=== PATIENT | male | born 1960 | race Caucasian/White ===

== ENCOUNTER 2017-05-29 23:25 | Emergency (ER) | payer MEDICARE ==
[~2017-05-29] VITALS: Ht 190.5 cm; Wt 104.5 kg
[2017-05-29 23:28] VITALS: TEMP 97.9
[2017-05-29] MEDS ORDERED: LOTREL 10 MG-201 CAP PO (23:32)
[2017-05-29] MEDS ORDERED: ELIQUIS 5MG PO (23:33)
[2017-05-29] MEDS ORDERED: TENORMIN100 MG PO (23:33)
[2017-05-29] MEDS ORDERED: ROXICODONE 55 MG/TAB PO (23:34)
[2017-05-30 01:09] VITALS: BP 98/63; PULSE 74
== END 2017-05-30 01:20 | disposition home or self-care (01) ==
LOC: COL.ER 23:25
DX: S82.51XA Displaced fracture of medial malleolus of right tibia, initial encounter for closed fracture (principal); S82.831A Other fracture of upper and lower end of right fibula, initial encounter for closed fracture; I48.91 Unspecified atrial fibrillation; I10 Essential (primary) hypertension; F17.210 Nicotine dependence, cigarettes, uncomplicated; Z98.890 Other specified postprocedural states; W18.39XA Other fall on same level, initial encounter; X50.0XXA Overexertion from strenuous movement or load, initial encounter; Y92.009 Unspecified place in unspecified non-institutional (private) residence as the place of occurrence of the external cause

== ENCOUNTER 2017-05-31 09:45 | Emergency (ER) | payer MEDICARE ==
[~2017-05-31] VITALS: Ht 193 cm; Wt 100.0 kg
[~2017-05-31 09:45] MED LIST: ELIQUIS 5MG PO; LOTREL 10 MG-201 CAP PO; ROXICODONE 55 MG/TAB PO; TENORMIN100 MG PO
[2017-05-31 09:51] VITALS: TEMP 99
[2017-05-31 13:33] VITALS: BP 109/88; PULSE 88
== END 2017-05-31 13:40 | disposition home or self-care (01) ==
LOC: COL.ER 09:45
DX: S82.841A Displaced bimalleolar fracture of right lower leg, initial encounter for closed fracture (principal); I10 Essential (primary) hypertension; I48.91 Unspecified atrial fibrillation; F17.210 Nicotine dependence, cigarettes, uncomplicated; Z86.69 Personal history of other diseases of the nervous system and sense organs; Z79.01 Long term (current) use of anticoagulants; Z98.890 Other specified postprocedural states; X58.XXXA Exposure to other specified factors, initial encounter
CPT/HCPCS: J2704

== ENCOUNTER 2020-09-10 06:55 | Inpatient (IN) | payer MEDICARE ==
[~2020-09-10] VITALS: Ht 193 cm; Wt 104.7 kg
[2020-09-10] VITALS (392 sets, daily range): BP systolic 75–144; BP diastolic 55–79; PULSE 53–120; TEMP 97.5–98.9; O2SAT 71–100
[2020-09-10 07:20] LABS: BASO % 0.3 % (0.0-2.0); GRAN # 9.2 (1.4-6.5); GRAN % 79.6 % (42.2-75.2); HEMOGLOBIN 11.4 g/dl (13.5-18.0); LYMPH # 1.5 (1.2-3.4); LYMPH % 13.1 % (20.0-51.0); MEAN CELL VOLUME 104 fl (80.0-100.0); MEAN CORPUSCULAR HEMOGLOBIN 36 pg (27.0-31.0); MEAN CORPUSCULAR HGB CONC 34 g/dl (33.0-37.0); MEAN PLATELET VOLUME 10.2 fl (7.4-10.4); MONO # 0.8 (0.1-0.6); MONO % 6.7 % (1.7-9.3); PLATELET COUNT 278 K/mm3 (130-400); RED BLOOD COUNT 3.19 M/mm3 (4.20-5.60); REDCELL DISTRIBUTION WIDTH-CV 12.5 % (11.5-14.5)
[2020-09-10 07:21] LABS: HEMATOCRIT 33.2 % (42.0-52.0)
[2020-09-10 07:29] LABS: ALANINE AMINOTRANSFERASE 12 U/L (4-49); ALBUMIN 2.6 gm/dL (3.5-5.0); ALKALINE PHOSPHATASE 123 U/L (50-136); ANION GAP 9 mmol/L (7-16); AST,SGOT 38 U/L (15-37); BILIRUBIN,TOTAL 1.1 mg/dL (0.0-1.0); BLOOD UREA NITROGEN 30 mg/dL (9-20); CALCIUM 7.7 mg/dL (8.4-10.2); CARBON DIOXIDE 24 mmol/L (22-30); CHLORIDE 92 mmol/L (98-107); CREATININE, serum 2.51 (0.66-1.25); GLUCOSE 114 mg/dL (74-106); LIPASE 36 U/L (23-300); POTASSIUM 4.6 mmol/L (3.4-5.0); SODIUM 124 mmol/L (137-145); TOTAL PROTEIN 6.1 gm/dL (6.4-8.2)
[2020-09-10 07:41] LABS: TROPONIN-I < 0.012 ng/mL (0.000-0.035)
[2020-09-10 08:55] LABS: PROTHROMBIN TIME 22.9 SECONDS (9.7-12.8)
[2020-09-10 10:17] LABS: COLLECTION METHOD CLEAN CATCH
[2020-09-10 10:23] LABS: MUCOUS Present /lpf; PH 7 (5-8); SQUAMOUS EPITHELIAL 0-2 /hpf; URINE APPEARANCE Hazy; URINE BACTERIA Rare /hpf; URINE BILIRUBIN Negative (NEGATIVE); URINE BLOOD 2+ (NEGATIVE); URINE COLOR Yellow; URINE GLUCOSE Negative (NEGATIVE); URINE KETONE Negative (NEGATIVE); URINE LEUKOCYTE ESTERASE 3+ (NEGATIVE); URINE NITRATE Negative (NEGATIVE); URINE PROTEIN(semi-quant) Negative (NEGATIVE); URINE UROBILINOGEN >=4.0 mg/dL (NEGATIVE)
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
[2020-09-10 15:36] LABS: CALCIUM 7.6 mg/dL (8.4-10.2); CREATININE, serum 2.12 (0.66-1.25); POTASSIUM 4.5 mmol/L (3.4-5.0)
--- NOTE | 2020-09-10 15:44 | NUR ---
Paracentisis complete. Removed 4500 ML fluid off abdomen. Sent off for testing. Patient denies discomfort or SOB. GI consult at bedside to discuss care with patient.
[2020-09-10 17:09] LABS: PERITONEAL FLUID RBC 0 /mm3 (0-0)
[2020-09-10 18:47] LABS: IRON,SERUM 99 ug/dL (35-150)
[2020-09-10 18:56] LABS: TOTAL IRON BINDING CAPACITY 154 ug/dL (261-462)
--- NOTE | 2020-09-10 19:15 | NUR ---
Received report from LOUISE Lambert.
[2020-09-10 19:24] LABS: CALCIUM 7.6 mg/dL (8.4-10.2); CREATININE, serum 1.97 (0.66-1.25); POTASSIUM 4.3 mmol/L (3.4-5.0)
[2020-09-10 22:34] LABS: FRACTIONAL EXCRETION OF NA+ 5.5 %
[2020-09-10 23:14] LABS: FOLATE (FOLIC ACID) 2.5 ng/mL (7.0-31.4)
[2020-09-10 23:32] LABS: CALCIUM 7.8 mg/dL (8.4-10.2); CREATININE, serum 1.94 (0.66-1.25)
[2020-09-11] VITALS (676 sets, daily range): BP systolic 83–102; BP diastolic 52–74; PULSE 106–160; TEMP 98–98.8; O2SAT 53–100
[2020-09-11 05:34] LABS: BASO # 0.1 (0.0-0.2); BASO % 0.5 % (0.0-2.0); EOS % 0.1 % (0-4.0); GRAN # 11.5 (1.4-6.5); LYMPH # 2.3 (1.2-3.4); LYMPH % 15.5 % (20.0-51.0); MEAN CELL VOLUME 106 fl (80.0-100.0); MEAN CORPUSCULAR HGB CONC 34 g/dl (33.0-37.0); MEAN PLATELET VOLUME 9.8 fl (7.4-10.4); MONO # 1.2 (0.1-0.6); MONO % 7.7 % (1.7-9.3); PLATELET COUNT 238 K/mm3 (130-400); RED BLOOD COUNT 2.57 M/mm3 (4.20-5.60); REDCELL DISTRIBUTION WIDTH-CV 12.8 % (11.5-14.5)
[2020-09-11 05:37] LABS: HEMATOCRIT 27.3 % (42.0-52.0); HEMOGLOBIN 9.3 g/dl (13.5-18.0); MEAN CORPUSCULAR HEMOGLOBIN 36 pg (27.0-31.0)
[2020-09-11 05:41] LABS: INR 2.8 (0.8-3.0); PROTHROMBIN TIME 32.1 SECONDS (9.7-12.8)
[2020-09-11 05:47] LABS: ALBUMIN 2.4 gm/dL (3.5-5.0); CALCIUM 7.9 mg/dL (8.4-10.2); CHOLESTEROL RISK RATIO 3.5; CREATININE, serum 1.7 (0.66-1.25); POTASSIUM 3.9 mmol/L (3.4-5.0); TOTAL PROTEIN 5.5 gm/dL (6.4-8.2)
[2020-09-11 06:00] LABS: ERYTHROCYTE SEDIMENTATION RATE 25 mm/hr (0-30)
--- NOTE | 2020-09-11 07:25 | NUR ---
RECEIVED REPORT FROM LOUISE INMAN. PT LYING IN BED WATCHING TV. CALL LIGHT WITHIN REACH. NOTED HR IN AFIB BETWEEN 110-160s. NO S/S OF DISTRESS NOTED AT THIS TIME. PT ON RA. ALL OTHER VSS.
--- NOTE | 2020-09-11 09:32 | NUR ---
ATTEMPTED TO RETRIEVE RECORDS FROM DR CALDERÓN OFFICE. LEFT VOICEMAIL TO CALL BACK. DR MICHAEL AWARE.
--- NOTE | 2020-09-11 11:00 | NUR ---
DR MICHAEL AT BEDSIDE FOR ASSESSMENT. NOTIFIED PHYSICIAN OF LOOSE STOOLS THAT ARE BLACK IN COLOR, AFIB 120-170s AND SBP WITH LEVOPHED GTT. NEW ORDERS RECEIVED.
--- NOTE | 2020-09-11 11:37 | NUR ---
SPOKE TO DR MICHAEL ABOUT LACTULOSE ORDER AND PT HAS HAD TWO LOOSE LIQUID STOOLS THIS MORNING. PHYSICIAN STATES OK TO HOLD LACTULOSE TODAY AND REASSESS FOR TOMORROW.
[2020-09-11 11:50] LABS: CALCIUM 7.8 mg/dL (8.4-10.2); CREATININE, serum 1.48 (0.66-1.25); POTASSIUM 3.5 mmol/L (3.4-5.0)
--- NOTE | 2020-09-11 14:35 | NUR ---
SPOKE TO DR YOUSSEF TO SEE IF SHE WAS GOING TO COME BY TODAY. PHYSICIAN STATES YES AFTER CLINIC. PHYSICIAN INFORMED OF PT HAVING MULTIPLE LIQUID BLACK STOOLS TODAY.
--- NOTE | 2020-09-11 15:07 | NUR ---
Microarray Specialist met with patient to discuss discharge planning. Patient lives alone in [place] and sees Dr. Prieto for primary care. Patient picks up his medications from [facility] and has a walker, wheelchair, and cane at home. Patient reports he is normally independent with ADLS. Patient states his friend Huy (ph#[phone]) is his DPOA-HC but SW could not locate copy in EMR. Patient states Huy should have a copy. Patient is not and has one adult son, Flip (ph#[phone]) who would be patient's legal next of kin if DPOA-HC cannot be found. SW reviewed PT recommendation for post acute rehab and patient is agreeable to this. Patient would like a referral sent to [facility]. SW discussed options for second preference including [facility] and the three SNFs in [place]. Patient states [facility] SNF would be second preference. SW faxed referrals to [facility] and [facility]. SW also faxed [employer] to obtain prior authorization as patient has a Medicare Advantage Plan. KESHAWN contacted LOUISE Bennett-CM at [facility] and they do not have DPOA for patient. KESHAWN then contacted patient's friend, Huy who confirmed he is DPOA. Huy advised that he is a chemical blender so he is currently out of state. Huy asked SW to email his , Gina to obtain a copy. KESHAWN sent email to Gina requesting DPOA-HC document. Discharge Plan: Awaiting screens from [facility] and [facility].
--- NOTE | 2020-09-11 16:29 | NUR ---
Adrianne from [facility] advised that they are not in network with [facility].
--- NOTE | 2020-09-11 16:30 | NUR ---
DR BROWN HERE CHECKING ON PT'S HR. NOTIFIED PHYSICIAN THAT PT'S HR HAS STILL MAINTAINED ABOVE 120 EVEN AFTER 1ST DOSE OF IV DIGOXIN GIVEN. NO NEW ORDERS.
--- NOTE | 2020-09-11 16:35 | NUR ---
DR YOUSSEF AT BEDSIDE FOR EXAM AND ASSESSMENT. NO NEW ORDERS.
--- NOTE | 2020-09-11 19:00 | NUR ---
Received report from LOUISE Stanley. Patient is assisted off of the bedpan and a linen change is performed. Stool is dark and tarry with a sticky consistency. Disbrow aware. Patient continues to receive levophed drip; tolerating well. Patient's HR reportedly sporadic, ranging 100-130s most of day. Other vitals within normal limits. No further needs noted at this time.
--- NOTE | 2020-09-11 23:30 | NUR ---
Hospitalist, Rhiannon, calls this RN regarding patient's HR and rhythm. Notified of HR ranging 130s to 160s at times; rhythm continues to be afib. Rhiannon consults Dr. Lagos and Dr. Kong, and receives orders to initiate amiodarone bolus followed by the drip. At this time, Rhiannon notified of patient's recent complaints of nausea and GI upset. Received orders for PRN zofran.
[2020-09-12] VITALS (547 sets, daily range): BP systolic 93–119; BP diastolic 57–87; PULSE 104–157; TEMP 98–98.5; O2SAT 68–100
[2020-09-12 04:16] LABS: CERULOPLASMIN 25 mg/dL (20-60)
[2020-09-12 05:20] LABS: BASO # 0.1 (0.0-0.2); BASO % 0.6 % (0.0-2.0); EOS % 0.1 % (0-4.0); GRAN # 9.2 (1.4-6.5); GRAN % 76.7 % (42.2-75.2); LYMPH # 1.8 (1.2-3.4); LYMPH % 15.4 % (20.0-51.0); MEAN CELL VOLUME 103 fl (80.0-100.0); MEAN CORPUSCULAR HGB CONC 35 g/dl (33.0-37.0); MEAN PLATELET VOLUME 9.9 fl (7.4-10.4); MONO # 0.8 (0.1-0.6); MONO % 6.9 % (1.7-9.3); PLATELET COUNT 219 K/mm3 (130-400); RED BLOOD COUNT 2.42 M/mm3 (4.20-5.60); REDCELL DISTRIBUTION WIDTH-CV 12.8 % (11.5-14.5)
[2020-09-12 05:25] LABS: HEMOGLOBIN 8.7 g/dl (13.5-18.0); MEAN CORPUSCULAR HEMOGLOBIN 36 pg (27.0-31.0)
[2020-09-12 05:27] LABS: INR 1.7 (0.8-3.0); PROTHROMBIN TIME 18.7 SECONDS (9.7-12.8)
[2020-09-12 05:32] LABS: ALBUMIN 2.2 gm/dL (3.5-5.0); CALCIUM 7.3 mg/dL (8.4-10.2); CREATININE, serum 1.22 (0.66-1.25); MAGNESIUM 1.1 mg/dL (1.6-2.3); POTASSIUM 3.2 mmol/L (3.4-5.0)
--- NOTE | 2020-09-12 07:15 | NUR ---
RECEIVED REPORT FROM LOUISE INMAN. PT RESTING EASILY WATCHING TV IN BED. VSS. CALL LIGHT WITHIN REACH.
--- NOTE | 2020-09-12 08:55 | NUR ---
DR GONZALEZ AT BEDSIDE FOR ASSESSMENT.
--- NOTE | 2020-09-12 09:25 | NUR ---
DR KAMARA AT BEDSIDE FOR ASSESSMENT AND SHOWED PHYSICIAN PT'S ANKLE WOUND
--- NOTE | 2020-09-12 11:25 | NUR ---
Head Resident received an email from Gina with what appeared to be the last two pages of a legal document, but SW could not determine what the document was. The document was completed at [facility] real estate attorney in [place]. SW contacted [employer] law office and they advised they only have a business POA for patient, nothing for healthcare. KESHAWN met with patient to follow up on DPOA-HC. Patient isn't sure if he wants to complete DPOA-HC and isn't sure who he would want to designate. SW explained to patient that if he did not have DPOA for Healthcare, medical decisions would be made by his legal next of kin if he is unable to make his own medical decisions. SW advised patient his son would be his legal next of kin. Patient verbalized understanding and will continue to think about if he would like to designate anyone. KESHAWN then followed up with patient on referrals. KESHAWN advised patient that [facility] is unable to accept. KESHAWN also advised that per Joe at [facility], he would have a daily out of pocket cost ($126 semi private/$171.50 private). Patient is unsure if he can afford this. KESHAWN informed patient that [facility] in network with [facility] and patient would like a referral sent there. KESHAWN contacted Jimmy at [facility] and faxed referral. KESHAWN also consulted Belen, Financial Counselor about possible Medicaid for patient. KESHAWN will continue to follow.
--- NOTE | 2020-09-12 13:35 | NUR ---
Underwater Roboticist received a phone call from [facility] retail field representative about authorization. SW advised she was unsure of discharge date as patient is still in ICU. SW was advised that auth will need to be resubmitted (refaxed) closer to discharge date.
--- NOTE | 2020-09-12 14:32 | NUR ---
DR YOUSSEF AT BEDSIDE FOR ASSESSMENT. DISCUSS URINE CULTURE RESULTS, C. DIFFE SENT AWAITING RESULTS.
[2020-09-12 14:37] LABS: CLOSTRIDIUM DIFF A/B NEG; CLOSTRIDIUM DIFF A/B INTERP No C.diff present
--- NOTE | 2020-09-12 14:57 | NUR ---
CARE PASSED TO LOUISE KAUFMAN AT THIS TIME. REPORT GIVEN. PT AWARE OF POC.
--- NOTE | 2020-09-12 16:05 | NUR ---
ATTEMPTED TO RETREIVE MEDICAL RECORDS FROM DR GRAJEDA'S OFFICE AGAIN. LEFT MESSAGE FOR NURSE TO CALL BACK. NO RESPONSE AT THIS TIME.
--- NOTE | 2020-09-12 19:22 | NUR ---
REPORT GIVEN TO LOUISE RUBIN. CARE RELINQUISHED AT THIS TIME.
[2020-09-13] VITALS (414 sets, daily range): BP systolic 75–108; BP diastolic 52–78; PULSE 60–108; TEMP 97.2–98.7; O2SAT 71–100
[2020-09-13 05:56] LABS: BASO # 0.1 (0.0-0.2); BASO % 0.4 % (0.0-2.0); EOS % 0.1 % (0-4.0); GRAN # 10.9 (1.4-6.5); GRAN % 81.7 % (42.2-75.2); LYMPH # 1.3 (1.2-3.4); LYMPH % 9.8 % (20.0-51.0); MEAN CELL VOLUME 105 fl (80.0-100.0); MEAN CORPUSCULAR HGB CONC 33 g/dl (33.0-37.0); MEAN PLATELET VOLUME 9.6 fl (7.4-10.4); MONO % 7.5 % (1.7-9.3); PLATELET COUNT 177 K/mm3 (130-400); RED BLOOD COUNT 2.58 M/mm3 (4.20-5.60); REDCELL DISTRIBUTION WIDTH-CV 14.4 % (11.5-14.5)
[2020-09-13 06:06] LABS: INR 1.5 (0.8-3.0); PROTHROMBIN TIME 16.3 SECONDS (9.7-12.8)
[2020-09-13 06:10] LABS: ALBUMIN 2.7 gm/dL (3.5-5.0); BILIRUBIN,TOTAL 2.6 mg/dL (0.0-1.0); CALCIUM 7.6 mg/dL (8.4-10.2); CREATININE, serum 0.96 (0.66-1.25); HEMATOCRIT 27.1 % (42.0-52.0); MAGNESIUM 1.6 mg/dL (1.6-2.3); MEAN CORPUSCULAR HEMOGLOBIN 35 pg (27.0-31.0); POTASSIUM 3.7 mmol/L (3.4-5.0); TOTAL PROTEIN 5.6 gm/dL (6.4-8.2)
--- NOTE | 2020-09-13 07:00 | NUR ---
REPORT RECEIVED FROM LOUISE RUBIN
[2020-09-13 12:46] LABS: ANTISMOOTH MUSCLE ANTIBODY Negative (Negative)
--- NOTE | 2020-09-13 15:00 | NUR ---
PERSISTENT DRAINAGE NOTED FROM PARACENTESIS SITE ON LEFT ABDOMEN. DRESSING PLACED OVER SITE. IT BECOMES SATURATED FAIRLY QUICKLY. WILL CONTINUE TO DRESS IT NECESSARY. MULTIPLE LINEN CHANGES HAVE OCCURRED D/T PERITONEAL DRAINAGE.
[2020-09-13 15:43] LABS: HEPATITIS B CORE AB,TOTAL Negative (())
[2020-09-13 15:44] LABS: HEPATITIS B SURFACE ANTIBODY <2.0 (()); HEPATITIS B SURFACE ANTIGEN Negative (Negative)
--- NOTE | 2020-09-13 16:00 | NUR ---
PERSISTENT LOOSE MUCOUS-LIKE STOOLS NOTED WITH THIS PATIENT. HE HAS HAD MULTIPLE EPISODES OF INCONTINENCE AND CALLS FOR BEDPAN WELL. ATTEMPTED TO PLACE RECTAL TUBE TO PROTECT SKIN INTEGRITY, BUT RECTAL TUBE WOULD NOT STAY IN PLACE. WILL CONTINUE TO MONITOR.
--- NOTE | 2020-09-13 19:00 | NUR ---
REPORT GIVEN TO LOUISE ALANIZ
--- NOTE | 2020-09-13 19:35 | NUR ---
RECEIVED REPORT FROM LOUISE PATEL. PATIENT IN NEED OF CLEANING AMD REPOSITIONED. COMPLAINT OF ABDOMINAL UPSET. IV IN LFA AND NEO PICC IN PLACE. SEE GTT TITRATION FLOWSHEET. VSS FOR PATIENT. CALL LIGHT WITHIN REACH. COBB PATENT, FREE OF DEPENDENT LOOPS AND FLOWING TO GRAVITY.
[2020-09-13 22:40] LABS: HEPATITIS C VIRUS ANTIBODY Negative (Negative)
[2020-09-14] VITALS (572 sets, daily range): BP systolic 83–109; BP diastolic 56–90; PULSE 68–88; TEMP 95.7–97.9; O2SAT 65–100
[2020-09-14 04:30] LABS: BASO % 0.1 % (0.0-2.0); GRAN # 8.1 (1.4-6.5); GRAN % 89.7 % (42.2-75.2); LYMPH # 0.6 (1.2-3.4); LYMPH % 6.8 % (20.0-51.0); MEAN CELL VOLUME 104 fl (80.0-100.0); MEAN CORPUSCULAR HGB CONC 34 g/dl (33.0-37.0); MEAN PLATELET VOLUME 10.5 fl (7.4-10.4); MONO # 0.3 (0.1-0.6); MONO % 3.2 % (1.7-9.3); PLATELET COUNT 128 K/mm3 (130-400); RED BLOOD COUNT 2.02 M/mm3 (4.20-5.60); REDCELL DISTRIBUTION WIDTH-CV 14.3 % (11.5-14.5)
[2020-09-14 04:32] LABS: HEMATOCRIT 20.9 % (42.0-52.0); HEMOGLOBIN 7.1 g/dl (13.5-18.0); MEAN CORPUSCULAR HEMOGLOBIN 35 pg (27.0-31.0)
[2020-09-14 04:40] LABS: ALBUMIN 2.5 gm/dL (3.5-5.0); BILIRUBIN,TOTAL 1.7 mg/dL (0.0-1.0); CREATININE, serum 0.82 (0.66-1.25); MAGNESIUM 2.1 mg/dL (1.6-2.3); POTASSIUM 4.1 mmol/L (3.4-5.0); TOTAL PROTEIN 5.1 gm/dL (6.4-8.2)
[2020-09-14 04:45] LABS: INR 1.4 (0.8-3.0); PROTHROMBIN TIME 15.7 SECONDS (9.7-12.8)
[2020-09-14 04:47] LABS: PRE ALBUMIN 3.2 mg/dL (17.6-36.0)
--- NOTE | 2020-09-14 08:00 | NUR ---
Report recieved from overnight RN, all questions answered. Patient found alert and oriented in bed. Denies pain or discomfort. Heart sounds irregular, lung sounds course, bowel sounds audible. Abdomen distended, fluid leaking from previous paracentisis site. Reinforced with aquacell. IV drips infusing into right PICC line without difficulty. Anderson in place draining geovanna urine. Patient on room air, Spo2 WNL. Blood pressures remain soft at this time. All safety maintained, call amos within reach. Will continue to monitor.
[2020-09-14 11:37] LABS: HEPATITIS AB (HAV) IGG INDEX 0.55 Index (<=1.00)
--- NOTE | 2020-09-14 14:00 | NUR ---
Paracentisis complete, 2.3L removed from abdomen. Gauze bandage in place. Radiologist placed glue and aquacell to previous leaking site. Will continue to monitor.
--- NOTE | 2020-09-14 14:13 | NUR ---
Endoscopy team with Dr. Benton at bedside for EGD.
--- NOTE | 2020-09-14 14:38 | NUR ---
Report recieved from Erin GIL from Endoscopy. Patiet is alert, vital signs within baseline. No complaints of pain at this time. Will continue to monitor.
--- NOTE | 2020-09-14 16:26 | NUR ---
Vice President Education contacted patient's son, Flip to review discharge planning. Flip does not have any questions or concerns at this time.
--- NOTE | 2020-09-14 16:39 | NUR ---
Patient is tolerating blood transfusiong without difficulty. Will continue to monitor.
[2020-09-14 19:17] LABS: HEMATOCRIT 25.2 % (42.0-52.0); HEMOGLOBIN 8.4 g/dl (13.5-18.0)
--- NOTE | 2020-09-14 19:25 | NUR ---
Report given to Marisol GIL.
--- NOTE | 2020-09-14 19:45 | NUR ---
RECEIVED REPORT FROM LOUISE MADERA. PATIENT RESTING IN BED WITH EYES OPEN. SEE GTT TITRATION FLOWSHEET. VSS. COBB PATENT AND DRAINING TO GRAVITY. CALL LIGHT WITHIN REACH.
--- NOTE | 2020-09-14 21:25 | NUR ---
WHILE CLEANINNG PATIENT UP, PATIENT'S O2 SATURATION WAS DROPPING AND HAD ATTEMPTED TO PLACE OXYMASK ON 2L TO SUPPLIMENT WHEN SATS REACHED 60s, HAD TO INCREASE TO 4 AND THEN 6L AND SATURATION REMAINED IN 80s. FINISHED CLEANING PATIENT WITH HELP OF RESPIRATORY THERAPIST. PATIENT'S LUNGS HAVE BEEN COURSE CRACKLES AND SIGNIFICANT BUILD UP OF THICK SPUTUM HAS BEEN NOTED TO BE IN THE THROAT. HAD ENCOURAGED PATIENT TO WORK ON INSENTIVE SPIROMETRY DURING THE DAY. HOWEVER, PATIENT'S RESPIRATORY STATUS HAS NOT IMPROVED WITH OTHER INTERVENTIONS AND PATIENT IS UNABLE TO RECOVER QUICKLY OR ON HIS OWN. CONTACTED LOY LOPEZ. ORDERS HAVE BEEN RECEIVED. WILL PLACE PATIENT ON BIPAP TO HELP WITH VENTILATION AMONG OTHER ORDERS.
[2020-09-14 21:43] LABS: ARTERIAL BLD GAS O2 SATURATION 86.3 % (92-100); ARTERIAL BLD GAS TCO2 CT 15.6; ARTERIAL BLOOD GAS BASE EXCESS -9.6 (-2-2); ARTERIAL BLOOD GAS HCO3 14.8 meq/L (22-26); ARTERIAL BLOOD GAS PCO2 27.5 mmHg (35-45); ARTERIAL BLOOD GAS PO2 52.2 mmHg (80-100); ARTERIAL BLOOD GAS pH 7.35 (7.35-7.45)
[2020-09-15] VITALS (1083 sets, daily range): BP systolic 86–102; BP diastolic 55–72; PULSE 66–90; TEMP 96.1–97; O2SAT 78–100
[2020-09-15 05:17] LABS: MEAN CELL VOLUME 103 fl (80.0-100.0); MEAN CORPUSCULAR HGB CONC 34 g/dl (33.0-37.0); MEAN PLATELET VOLUME 10.8 fl (7.4-10.4); PLATELET COUNT 146 K/mm3 (130-400); RED BLOOD COUNT 2.48 M/mm3 (4.20-5.60); REDCELL DISTRIBUTION WIDTH-CV 15.7 % (11.5-14.5)
[2020-09-15 05:25] LABS: INR 1.3 (0.8-3.0); PROTHROMBIN TIME 14.6 SECONDS (9.7-12.8)
[2020-09-15 05:26] LABS: ALBUMIN 2.6 gm/dL (3.5-5.0); BILIRUBIN,TOTAL 1.8 mg/dL (0.0-1.0); CALCIUM 7.9 mg/dL (8.4-10.2); CREATININE, serum 1.01 (0.66-1.25); POTASSIUM 4.1 mmol/L (3.4-5.0); TOTAL PROTEIN 5.3 gm/dL (6.4-8.2)
[2020-09-15 05:27] LABS: HEMATOCRIT 25.6 % (42.0-52.0); HEMOGLOBIN 8.8 g/dl (13.5-18.0); MEAN CORPUSCULAR HEMOGLOBIN 35 pg (27.0-31.0)
[2020-09-15 05:36] LABS: LYMPHOCYTE 3 % (20.0-51.0); NEUTROPHILS 94 % (42.0-75.2)
[2020-09-15 05:37] LABS: HYPOCHROMIA 1+; OVALOCYTES 1+; PLATELET ESTIMATE NORMAL (NORMAL); POIKILOCYTOSIS 1+
[2020-09-15 11:06] LABS: ARTERIAL BLD GAS O2 SATURATION 94.3 % (92-100); ARTERIAL BLD GAS TCO2 CT 14.9; ARTERIAL BLOOD GAS HCO3 14.2 meq/L (22-26); ARTERIAL BLOOD GAS PO2 68.1 mmHg (80-100); ARTERIAL BLOOD GAS pH 7.39 (7.35-7.45)
--- NOTE | 2020-09-15 11:24 | NUR ---
Promotions Specialist faxed updates to [facility] [email or web address].
--- NOTE | 2020-09-15 20:00 | NUR ---
Assessment complete and charted. Patient has excoration to buttocks present. Abrasions to fingers present. Right ankle dressing CDI. ABD dressings CDI. Patient given bed bath and incontinence care. After cares patient had increased work of breathing with decreased oxygen saturations. 86% on 6 liters. Liter flow increased to 8 liters and patient at 90%. Patient placed on bipap at this time. Respiratory aware. Patient has ABG due this evening. Call light in reach.
[2020-09-15 20:08] LABS: MAGNESIUM 1.8 mg/dL (1.6-2.3); PHOSPHOROUS 2.7 mg/dL (2.5-4.5)
[2020-09-15 21:08] LABS: ARTERIAL BLD GAS O2 SATURATION 90.9 % (92-100); ARTERIAL BLOOD GAS BASE EXCESS -9.7 (-2-2); ARTERIAL BLOOD GAS HCO3 13.5 meq/L (22-26); ARTERIAL BLOOD GAS PCO2 22.4 mmHg (35-45); ARTERIAL BLOOD GAS PO2 58.2 mmHg (80-100); ARTERIAL BLOOD GAS pH 7.39 (7.35-7.45)
[2020-09-16] VITALS (1102 sets, daily range): BP systolic 76–123; BP diastolic 60–76; PULSE 56–92; TEMP 97.1–97.8; O2SAT 73–100
--- NOTE | 2020-09-16 00:17 | NUR ---
Assessment complete and charted at this time. Patient remains on bipap. Denies needs. Call light in reach.
[2020-09-16 06:22] LABS: BASO % 0.2 % (0.0-2.0); GRAN % 87.2 % (42.2-75.2); LYMPH # 0.7 (1.2-3.4); LYMPH % 5.4 % (20.0-51.0); MEAN CELL VOLUME 102 fl (80.0-100.0); MEAN CORPUSCULAR HGB CONC 34 g/dl (33.0-37.0); MEAN PLATELET VOLUME 11.6 fl (7.4-10.4); MONO # 0.8 (0.1-0.6); MONO % 6.5 % (1.7-9.3); PLATELET COUNT 163 K/mm3 (130-400); REDCELL DISTRIBUTION WIDTH-CV 15.4 % (11.5-14.5)
[2020-09-16 06:26] LABS: HEMATOCRIT 24.5 % (42.0-52.0); HEMOGLOBIN 8.4 g/dl (13.5-18.0); MEAN CORPUSCULAR HEMOGLOBIN 35 pg (27.0-31.0)
[2020-09-16 06:36] LABS: ALBUMIN 2.9 gm/dL (3.5-5.0); CALCIUM 8.1 mg/dL (8.4-10.2); CREATININE, serum 1.07 (0.66-1.25); MAGNESIUM 1.7 mg/dL (1.6-2.3); POTASSIUM 3.6 mmol/L (3.4-5.0); TOTAL PROTEIN 5.4 gm/dL (6.4-8.2)
--- NOTE | 2020-09-16 06:45 | NUR ---
Patient remained on bipap throughout night. Increased to 55% fiO2 this AM for saturations 87-89%. Currently at 94%. Repositioned during night. Denies needs this AM. Call light in reach.
--- NOTE | 2020-09-16 07:15 | NUR ---
Report given to LOUISE Bautista
--- NOTE | 2020-09-16 10:45 | NUR ---
Attempted to remove Bipap to wear oxymask at 6L while patient had a few sips of gatorade with his morning medications. PT initially dropped to 79% SPO2 as noted on monitor. PT slow came up to 83% Oxygen increased to 8L. PT SPO2 not rising above 87%. PT was tachypneic and showing increased work of breathing. Bipap was donned at this time. Nelly, RT now at bedside.
[2020-09-16 10:53] LABS: ARTERIAL BLD GAS O2 SATURATION 95.1 % (92-100); ARTERIAL BLD GAS TCO2 CT 17.5; ARTERIAL BLOOD GAS HCO3 16.8 meq/L (22-26); ARTERIAL BLOOD GAS PCO2 25.3 mmHg (35-45); ARTERIAL BLOOD GAS PO2 73.1 mmHg (80-100); ARTERIAL BLOOD GAS pH 7.44 (7.35-7.45)
--- NOTE | 2020-09-16 19:20 | NUR ---
Report given to LOUISE Richard. Care relinquished at this time.
[2020-09-16 19:31] LABS: COLLECTION METHOD CLEAN CATCH
[2020-09-16 19:46] LABS: MUCOUS Present /lpf; PH 5 (5-8); SQUAMOUS EPITHELIAL 0-2 /hpf; URINE APPEARANCE Cloudy; URINE BACTERIA Rare /hpf; URINE BILIRUBIN Negative (NEGATIVE); URINE BLOOD 3+ (NEGATIVE); URINE COLOR Amber; URINE GLUCOSE Negative (NEGATIVE); URINE KETONE Negative (NEGATIVE); URINE LEUKOCYTE ESTERASE 3+ (NEGATIVE); URINE NITRATE Negative (NEGATIVE); URINE PROTEIN(semi-quant) 2+ (NEGATIVE); URINE RBC >50 /hpf; URINE UROBILINOGEN Negative (NEGATIVE); URINE WBC >50 /hpf
--- NOTE | 2020-09-16 20:00 | NUR ---
Assessment complete. Pt is AXO X3, denies having any pain at this time. Pt is on BiPAP but does not have a good seal. Pt face shaved to help achieve a better seal. Pt is sitting up in the bed watching TV at this time and he denies further needs. Call light within reach.
[2020-09-17] VITALS (1152 sets, daily range): BP systolic 85–122; BP diastolic 28–83; PULSE 56–98; TEMP 96.9–97.8; O2SAT 76–100
[2020-09-17 05:18] LABS: MEAN CELL VOLUME 101 fl (80.0-100.0); MEAN CORPUSCULAR HGB CONC 34 g/dl (33.0-37.0); MEAN PLATELET VOLUME 11.2 fl (7.4-10.4); PLATELET COUNT 162 K/mm3 (130-400); RED BLOOD COUNT 2.39 M/mm3 (4.20-5.60); REDCELL DISTRIBUTION WIDTH-CV 15.1 % (11.5-14.5)
[2020-09-17 05:21] LABS: HEMATOCRIT 24.1 % (42.0-52.0); HEMOGLOBIN 8.2 g/dl (13.5-18.0); MEAN CORPUSCULAR HEMOGLOBIN 34 pg (27.0-31.0)
[2020-09-17 05:27] LABS: INR 1.5 (0.8-3.0); PROTHROMBIN TIME 16.3 SECONDS (9.7-12.8)
[2020-09-17 05:37] LABS: BILIRUBIN,TOTAL 0.9 mg/dL (0.0-1.0); CALCIUM 8.4 mg/dL (8.4-10.2); CREATININE, serum 1.22 (0.66-1.25); MAGNESIUM 1.6 mg/dL (1.6-2.3); POTASSIUM 3.5 mmol/L (3.4-5.0); TOTAL PROTEIN 5.4 gm/dL (6.4-8.2)
[2020-09-17 05:49] LABS: BAND 5 % (0-10); LYMPHOCYTE 10 % (20.0-51.0); NEUTROPHILS 79 % (42.0-75.2); PLATELET ESTIMATE NORMAL (NORMAL)
[2020-09-17 05:50] LABS: ANISOCYTOSIS 1+
--- NOTE | 2020-09-17 07:00 | NUR ---
Report received from Jose Manuel GIL.
--- NOTE | 2020-09-17 07:25 | NUR ---
Report received from Jose Manuel. Pt resting in bed at this time on Bipap. RT at bedside.
--- NOTE | 2020-09-17 07:49 | NUR ---
Bedside shift report givent to LOUISE Reardon.
--- NOTE | 2020-09-17 09:28 | NUR ---
PT INTUBATED AT 0924 BY ABSORPTION AND ADSORPTION ENGINEER, SMOOTH INTUBATION WITH 7.5 ET, 26CM @ THE TEETH. INITIAL SETTINGS INITIATED PER VERBAL ORDER BY DR. KAMARA.
[2020-09-17 10:33] LABS: ARTERIAL BLD GAS TCO2 CT 17.8; ARTERIAL BLOOD GAS BASE EXCESS -8.5 (-2-2); ARTERIAL BLOOD GAS HCO3 16.8 meq/L (22-26); ARTERIAL BLOOD GAS PCO2 33.5 mmHg (35-45); ARTERIAL BLOOD GAS pH 7.32 (7.35-7.45)
--- NOTE | 2020-09-17 12:00 | NUR ---
Within the last 2 hours family has been contacted, via voicemails and call backs to this nurse. Renetta, ex , was contacted and added to the visitors list per pts request. Spoke with SS about Flip, son, being the next of kin and person of contact in order to make medical decisions about father when he is unable to make them himself. AG called for an update, which was provided due to pts request of him being the point of contact. All 3 notified that Flip will be medical point of contact as well as the 2 visitors policy at this time. Questions encouraged. All expressed understanding.
--- NOTE | 2020-09-17 14:18 | NUR ---
Awaiting approval of PICC in patient's left arm by Tourist Cabin Keeper.
--- NOTE | 2020-09-17 14:38 | NUR ---
International Freight Forwarder collaborated with RNCaron who advised patient is about to be intubated. Patient does not have DPOA for healthcare and his legal next of kin is his son, Flip. Caron advised she thought patient told her he had a . KESHAWN and RN met with patient at bedside who is still on bipap. Caron asked patient if Renee is his and patient states "ex-". SW asked if patient was still legally and he indicated no. Caron told patient we would notify his son, Flip that he is to be intubated and patient asked if we had Flip's phone number. Caron told patient we do. KESHAWN spoke with Caron later in the morning and she advised she had contacted Flip to notify him. KESHAWN also contacted Flip and explained that as patient's legal next of kin, he would be decision maker for patient if patient is unable to make his own medical decisions. Flip verbalized understanding. KESHAWN made sure Flip's contact information was on the contact sheet on patient's chart and marked that patient was legal decision maker. KESHAWN faxed clinical updates to [facility] [employer] and [employer].
--- NOTE | 2020-09-17 15:29 | NUR ---
Primary care nurse reported NO PICC from Dr. Huston
--- NOTE | 2020-09-17 17:00 | NUR ---
Pt intubated today, does not qualify for sedation vacation.
--- NOTE | 2020-09-17 18:00 | NUR ---
Renetta at bedside with pt.
[2020-09-17 18:42] LABS: ARTERIAL BLD GAS O2 SATURATION 98.3 % (92-100); ARTERIAL BLD GAS TCO2 CT 18.2; ARTERIAL BLOOD GAS BASE EXCESS -6.4 (-2-2); ARTERIAL BLOOD GAS HCO3 17.3 meq/L (22-26); ARTERIAL BLOOD GAS PCO2 28.9 mmHg (35-45); ARTERIAL BLOOD GAS PO2 115.3 mmHg (80-100)
--- NOTE | 2020-09-17 19:00 | NUR ---
Report provided to Marisol GIL. Lines and tubes reviewed at this time.
--- NOTE | 2020-09-17 19:05 | NUR ---
RECEIVED REPORT FROM LOUISE NICOLE. PATIENT SEDATED AND INTUBATED, RESTING IN BED WITH EYES CLOSED. SEE GTT TITRATION FLOWSHEET. VSS AND CALL LIGHT WITHIN REACH. COBB CATHETER DRAINING TO GRAVITY AND FREE OF DEPENDENT LOOPS AND KINKS. ART LINE IN PLACE, ETT 25 AT THE TEETH, OG 55 AT THE TEETH PER REPORT. TUBE FEEDINGS TO BE STARTED TONIGHT. PICC LINE IN NEO IN PLACE. PATIENT APPEARS TO BE COMFORTABLE.
[2020-09-18] VITALS (927 sets, daily range): BP systolic 95–124; BP diastolic 48–71; PULSE 56–103; TEMP 97.4–98.7; O2SAT 94–99
[2020-09-18 05:27] LABS: ARTERIAL BLD GAS O2 SATURATION 96.9 % (92-100); ARTERIAL BLD GAS TCO2 CT 16.9; ARTERIAL BLOOD GAS BASE EXCESS -7.2 (-2-2); ARTERIAL BLOOD GAS HCO3 16.1 meq/L (22-26); ARTERIAL BLOOD GAS PCO2 25.9 mmHg (35-45); ARTERIAL BLOOD GAS PO2 93.5 mmHg (80-100); ARTERIAL BLOOD GAS pH 7.41 (7.35-7.45)
[2020-09-18 05:51] LABS: MEAN CELL VOLUME 105 fl (80.0-100.0); MEAN CORPUSCULAR HGB CONC 35 g/dl (33.0-37.0); MEAN PLATELET VOLUME 11.2 fl (7.4-10.4); RED BLOOD COUNT 2.64 M/mm3 (4.20-5.60); REDCELL DISTRIBUTION WIDTH-CV 15.4 % (11.5-14.5)
[2020-09-18 05:52] LABS: HEMATOCRIT 27.6 % (42.0-52.0); HEMOGLOBIN 9.6 g/dl (13.5-18.0); MEAN CORPUSCULAR HEMOGLOBIN 36 pg (27.0-31.0); PLATELET COUNT 268 K/mm3 (130-400)
[2020-09-18 06:02] LABS: CALCIUM 8.3 mg/dL (8.4-10.2); CREATININE, serum 1.16 (0.66-1.25); PHOSPHOROUS 2.5 mg/dL (2.5-4.5); POTASSIUM 3.4 mmol/L (3.4-5.0)
[2020-09-18 06:36] LABS: ANISOCYTOSIS 1+; BAND 6 % (0-10); LYMPHOCYTE 14 % (20.0-51.0); METAMYELOCYTE 3 % (0-0); MYELOCYTE 2 % (0-0); NEUTROPHILS 75 % (42.0-75.2); PLATELET ESTIMATE NORMAL (NORMAL)
--- NOTE | 2020-09-18 13:18 | NUR ---
Pt accepted at Medical - room: CA-2110
--- NOTE | 2020-09-18 16:45 | NUR ---
1645: Fentanyl and Propfol decreased per sedation vacation protocol. 1657 pt able to open eyes, follow commands and equally weak move all extremities. Sedation increased to previous rate per protocol
[2020-09-19] VITALS (847 sets, daily range): BP systolic 96–121; BP diastolic 49–67; PULSE 52–64; TEMP 96.5–98; O2SAT 73–100
[2020-09-19 05:22] LABS: ARTERIAL BLD GAS O2 SATURATION 96.8 % (92-100); ARTERIAL BLD GAS TCO2 CT 20.2; ARTERIAL BLOOD GAS BASE EXCESS -5.1 (-2-2); ARTERIAL BLOOD GAS HCO3 19.2 meq/L (22-26); ARTERIAL BLOOD GAS PCO2 33.1 mmHg (35-45); ARTERIAL BLOOD GAS pH 7.38 (7.35-7.45)
--- NOTE | 2020-09-19 05:37 | NUR ---
RN states that pt vital signs are too unstable for weaning trail.
[2020-09-19 06:02] LABS: MEAN CELL VOLUME 102 fl (80.0-100.0); MEAN CORPUSCULAR HGB CONC 34 g/dl (33.0-37.0); MEAN PLATELET VOLUME 10.4 fl (7.4-10.4); PLATELET COUNT 286 K/mm3 (130-400); RED BLOOD COUNT 2.52 M/mm3 (4.20-5.60); REDCELL DISTRIBUTION WIDTH-CV 15.5 % (11.5-14.5)
--- NOTE | 2020-09-19 06:05 | NUR ---
AT 546 PATIENT CAN OPEN EYES SPONTANEOUSLY, FOLLOWS COMMANDS SLOWLY, SEDATION RESUMES, PAIN MEDS RESUMES,
[2020-09-19 06:12] LABS: HEMATOCRIT 25.7 % (42.0-52.0); HEMOGLOBIN 8.7 g/dl (13.5-18.0); MEAN CORPUSCULAR HEMOGLOBIN 35 pg (27.0-31.0)
[2020-09-19 06:15] LABS: CALCIUM 8.4 mg/dL (8.4-10.2); CREATININE, serum 1.26 (0.66-1.25); MAGNESIUM 1.9 mg/dL (1.6-2.3); PHOSPHOROUS 1.9 mg/dL (2.5-4.5); POTASSIUM 3.1 mmol/L (3.4-5.0)
[2020-09-19 06:48] LABS: BAND 2 % (0-10); LYMPHOCYTE 14 % (20.0-51.0); METAMYELOCYTE 6 % (0-0); NEUTROPHILS 70 % (42.0-75.2); NUCLEATED RED BLOOD CELL 3 (0-6)
[2020-09-19 06:49] LABS: PLATELET ESTIMATE NORMAL (NORMAL)
--- NOTE | 2020-09-19 07:00 | NUR ---
RECEIVED REPORT FROM LOUISE AMAYA. PT RESTING EASILY ON CURRENT VENT SETTINGS: TV 480, PEEP 8, RR 24, FIO2 35%. FC PATENT AND DRAINING TO GRAVITY. OGT IN PLACE WITH TF INFUSING AT 50ML/HR. RT RADIAL ART LINE NOTED WITH GOOD WAVEFORM. HOME CARE SCHEDULER IN PLACE. VSS. SEE GTT FLOWSHEET.
--- NOTE | 2020-09-19 08:00 | NUR ---
DR KAMARA AT BEDSIDE FOR ASSESSMENT. DISCUSSED, HR, UO LAST NIGHT, BP AND OFF GTTs, NEURO STATUS. NEW ORDERS RECEIVED. PHYSICIAN REQUESTS RN TO SPEAK TO NEPHROLOGY ABOUT BUMEX AND CARDIOLOGY ABOUT DECREASING AMIO PO. WILL DISCUSS WITH PROPER PROVIDERS THEY ROUND THIS AM.
--- NOTE | 2020-09-19 08:20 | NUR ---
SPOKE TO LOUISE KAN WITH DR PUENTES ABOUT DR KAMARA'S SUGGESTION OF INCREASING BUMEX. NEW ORDERS RECEIVED.
[2020-09-19 08:28] LABS: PATHOLOGY DIFF REVIEW OK
--- NOTE | 2020-09-19 10:22 | NUR ---
SPOKE TO DR BROWN ABOUT HR AND DR KAMARA'S RECOMMENDATION, NEW ORDERS RECEIVED.
--- NOTE | 2020-09-19 12:00 | NUR ---
SPOKE TO DR SMITH ABOUT A RECTAL TUBE D/T LIQUID STOOLS AND COCCYX SORES. NEW ORDERS RECEIVED
--- NOTE | 2020-09-19 12:30 | NUR ---
DR YOUSSEF AT BEDSIDE FOR ASSESSMENT. NOTED OFF PRESSORS AND DISCUSSED RECTAL TUBE PLACEMENT AND LACTULOSE. PHYSICIAN STATES WILL SPEAK TO DR SMITH AND DECIDE TO POSSIBLY STOP LACTULOSE.
--- NOTE | 2020-09-19 18:20 | NUR ---
PAGED DR BROWN FOR TROPONIN LEVEL AND AMIODARONE GTT INSTRUCTIONS. WAITING FOR CALL BACK.
[2020-09-20] VITALS (794 sets, daily range): BP systolic 89–117; BP diastolic 45–68; PULSE 53–64; TEMP 95.6–98.6; O2SAT 68–100
[2020-09-20 04:32] LABS: MEAN CELL VOLUME 102 fl (80.0-100.0); MEAN CORPUSCULAR HGB CONC 34 g/dl (33.0-37.0); MEAN PLATELET VOLUME 10.7 fl (7.4-10.4); PLATELET COUNT 307 K/mm3 (130-400); RED BLOOD COUNT 2.69 M/mm3 (4.20-5.60); REDCELL DISTRIBUTION WIDTH-CV 15.8 % (11.5-14.5)
[2020-09-20 04:44] LABS: HEMATOCRIT 27.4 % (42.0-52.0); HEMOGLOBIN 9.4 g/dl (13.5-18.0); MEAN CORPUSCULAR HEMOGLOBIN 35 pg (27.0-31.0)
[2020-09-20 04:46] LABS: ARTERIAL BLD GAS O2 SATURATION 97.6 % (92-100); ARTERIAL BLD GAS TCO2 CT 18.7; ARTERIAL BLOOD GAS BASE EXCESS -6.3 (-2-2); ARTERIAL BLOOD GAS HCO3 17.7 meq/L (22-26); ARTERIAL BLOOD GAS PCO2 30.2 mmHg (35-45); ARTERIAL BLOOD GAS PO2 98.8 mmHg (80-100); ARTERIAL BLOOD GAS pH 7.39 (7.35-7.45)
[2020-09-20 04:51] LABS: CALCIUM 8.1 mg/dL (8.4-10.2); CREATININE, serum 1.23 (0.66-1.25); MAGNESIUM 1.7 mg/dL (1.6-2.3); PHOSPHOROUS 2.3 mg/dL (2.5-4.5); POTASSIUM 3.2 mmol/L (3.4-5.0)
[2020-09-20 04:55] LABS: PROTHROMBIN TIME 11.6 SECONDS (9.7-12.8)
--- NOTE | 2020-09-20 05:00 | NUR ---
PATIENT ABLE TO FOLLOW COMMANDS AND IS RESTING COMFORTABLY ON CURRENT LEVEL OF SEDATION.
[2020-09-20 05:27] LABS: ANISOCYTOSIS 1+; BAND 8 % (0-10); LYMPHOCYTE 8 % (20.0-51.0); METAMYELOCYTE 1 % (0-0); NEUTROPHILS 82 % (42.0-75.2); PLATELET ESTIMATE NORMAL (NORMAL)
--- NOTE | 2020-09-20 20:08 | NUR ---
Received report from LOUISE Bautista. All medications verified and all questions answered. Patient intubated and sedated but able to follow commands. VSS. Will resume care at this time.
[2020-09-21] VITALS (1066 sets, daily range): BP systolic 93–124; BP diastolic 51–79; PULSE 57–79; TEMP 97.4–97.9; O2SAT 85–100
[2020-09-21 05:32] LABS: MEAN CELL VOLUME 102 fl (80.0-100.0); MEAN CORPUSCULAR HGB CONC 34 g/dl (33.0-37.0); MEAN PLATELET VOLUME 10.5 fl (7.4-10.4); PLATELET COUNT 342 K/mm3 (130-400); RED BLOOD COUNT 2.66 M/mm3 (4.20-5.60)
[2020-09-21 05:42] LABS: ALBUMIN 2.7 gm/dL (3.5-5.0); BILIRUBIN,TOTAL 0.4 mg/dL (0.0-1.0); CALCIUM 8.1 mg/dL (8.4-10.2); CREATININE, serum 1.3 (0.66-1.25); MAGNESIUM 2.2 mg/dL (1.6-2.3); PHOSPHOROUS 3.3 mg/dL (2.5-4.5); POTASSIUM 4.3 mmol/L (3.4-5.0); TOTAL PROTEIN 5.3 gm/dL (6.4-8.2)
[2020-09-21 05:43] LABS: HEMATOCRIT 27.1 % (42.0-52.0); HEMOGLOBIN 9.1 g/dl (13.5-18.0); MEAN CORPUSCULAR HEMOGLOBIN 34 pg (27.0-31.0)
--- NOTE | 2020-09-21 05:43 | NUR ---
Beginning to ween patient off sedated to start CPAP trial at 0700 for potential extubation later this AM. Patient alert and able to follow commands and respond to yes/no questions by shaking his head. Nurse notified patient of decreasing sedation medicaiton and patient shook his head that he understood that he would be waking up more for CPAP trial. Patient tolerating decreasing sedation medication.
--- NOTE | 2020-09-21 05:53 | NUR ---
Called [facility] and spoke with Dr. Perez and notified of critical WBC value of 23.2. Nurse stated antibiotics patient was currently on. No new orders at this time.
[2020-09-21 06:03] LABS: ANISOCYTOSIS 1+; BAND 8 % (0-10); HYPOCHROMIA 1+; LYMPHOCYTE 4 % (20.0-51.0); NEUTROPHILS 84 % (42.0-75.2); OVALOCYTES 1+
[2020-09-21 06:04] LABS: PLATELET ESTIMATE NORMAL (NORMAL)
[2020-09-21 06:05] LABS: ARTERIAL BLD GAS O2 SATURATION 97.9 % (92-100); ARTERIAL BLD GAS TCO2 CT 20.7; ARTERIAL BLOOD GAS BASE EXCESS -3.1 (-2-2); ARTERIAL BLOOD GAS HCO3 19.8 meq/L (22-26); ARTERIAL BLOOD GAS PCO2 29.2 mmHg (35-45); ARTERIAL BLOOD GAS pH 7.45 (7.35-7.45)
--- NOTE | 2020-09-21 08:30 | NUR ---
PATIENT EXTUBATED BY RT DIANNA AND KENIA RN
--- NOTE | 2020-09-21 08:48 | NUR ---
PT WAS SUCCESSFULLY EXTUBATED. PLACED ON 3L OM. WILL TITRATE TOLERATED. NO DISTRESS NOTED.
--- NOTE | 2020-09-21 10:17 | NUR ---
Patient was extubated this morning. Liability Claims Representative faxed clinical updates to [facility] [employer].
--- NOTE | 2020-09-21 16:00 | NUR ---
Speech therapy here to evaluate patient
--- NOTE | 2020-09-21 19:30 | NUR ---
report given to LOUISE Saunders
--- NOTE | 2020-09-21 21:17 | NUR ---
I recieved report from LOUISE Moseley. Patient was sitting upright in his bed. He still has quite a bit of phlem that he's coughing up. He has the Yancher in his hand and is able to use it independently. He doesn't complain of pain or shortness of breath. SCD's were placed. He recieved his eventing meds with apple sauce and tolderated it well. He is on 4L NC and is comfortable. Vitals are stable and he is afebrile.
[2020-09-22] VITALS (569 sets, daily range): BP systolic 113–132; BP diastolic 59–76; PULSE 63–77; TEMP 97.4–98.9; O2SAT 86–99
[2020-09-22 05:57] LABS: BASO % 0.1 % (0.0-2.0); GRAN # 20.6 (1.4-6.5); GRAN % 85.9 % (42.2-75.2); LYMPH # 1.4 (1.2-3.4); LYMPH % 5.7 % (20.0-51.0); MEAN CELL VOLUME 105 fl (80.0-100.0); MEAN CORPUSCULAR HGB CONC 34 g/dl (33.0-37.0); MEAN PLATELET VOLUME 10.1 fl (7.4-10.4); MONO # 0.9 (0.1-0.6); MONO % 3.8 % (1.7-9.3); PLATELET COUNT 324 K/mm3 (130-400); RED BLOOD COUNT 2.65 M/mm3 (4.20-5.60); REDCELL DISTRIBUTION WIDTH-CV 16.4 % (11.5-14.5)
[2020-09-22 06:02] LABS: HEMATOCRIT 27.7 % (42.0-52.0); HEMOGLOBIN 9.3 g/dl (13.5-18.0); MEAN CORPUSCULAR HEMOGLOBIN 35 pg (27.0-31.0)
[2020-09-22 06:08] LABS: ALBUMIN 2.9 gm/dL (3.5-5.0); BILIRUBIN,TOTAL 0.7 mg/dL (0.0-1.0); CALCIUM 8.6 mg/dL (8.4-10.2); CREATININE, serum 1.3 (0.66-1.25); MAGNESIUM 1.9 mg/dL (1.6-2.3); PHOSPHOROUS 3.1 mg/dL (2.5-4.5); POTASSIUM 3.6 mmol/L (3.4-5.0); TOTAL PROTEIN 5.8 gm/dL (6.4-8.2)
--- NOTE | 2020-09-22 07:00 | NUR ---
RECEVIED REPORT FROM LOUISE RUBIN. PT SITTING UP WATCHING TV. SUCTION AND CALL LIGHT WITHIN REACH. PT ON 3L VIA NC. FC PATENT AND DRAINING TO GRAVITY. VSS.
--- NOTE | 2020-09-22 10:28 | NUR ---
DISCUSSED POC WITH DR KELLY. DISCUSSED VSS AND NO INCREASE IN ICU NEEDS OVERNIGHT. PHYSICIAN STATES AGREES IF DR KAMARA STATES OK TO TRANSFER, WILL PLACE ORDERS. DR KAMARA TO BEDSIDE AT 1029. DR KAMARA STATES OK TO TRANSFER PT AND TO COLLECT A CDIFFE SAMPLE TO RECHECK.
--- NOTE | 2020-09-22 12:54 | NUR ---
REPORT GIVEN TO LOUISE TREVINO ON MEDICAL. PT TO TRANSFER TO [facility] VIA BED. PT ON 3L VIA NC. ALL PERSONAL BELONGINGS SENT WITH PT.
--- NOTE | 2020-09-22 13:30 | NUR ---
Patient to room 319 from the ICU. Patient A&O. IV CDI, fluids infusing. Rectal tube CDI. Anderson dependent drainage, clear yellow. Denies pain and discomfort. Suction at bedside. Patient positioned for comfort. Call light within reach
[2020-09-22 13:43] LABS: CLOSTRIDIUM DIFF A/B NEG; CLOSTRIDIUM DIFF A/B INTERP No C.diff present
--- NOTE | 2020-09-22 17:53 | NUR ---
Patient repositioned for comfort. A&O. VSS 96 on room air. IV CDI. Rectal tube patent. Anderson clear yellow urine. Denies pain and discomfort. No further needs expressed from the patient. Call light within reach
--- NOTE | 2020-09-22 19:20 | NUR ---
Patient assessed at this time. Alert and oriented x 4, and able to make needs known. Complained of level 5 pain to back. Repositioned and given PRN Roxicodone as requested for pain. Double lumen PICC to RUE. Site without redness, warmth, swelling, and pain. Denies SOB and dyspnea. Currently on room air. LS CTA. Respirations even and unlabored. HRI. Telemetry in place: A-fib rate controlled. Capillary refill less than 3 seconds. Non-tenting skin turgor. BSAx4. Abdomen soft and non-tender. 1+ edema BLE. Indwelling ramsey catheter in place, draining clear yellow urine via dependent drainage. Rectal tube in place. Voices no questions, needs, or concerns at this time. Resting in bed with call light within reach. Staff assists wtih repositioning every two hours and as needed. Dressings to wounds on coccyx and right ankle are CDI.
[2020-09-23 03:25] VITALS: BP 105/57; PULSE 66; TEMP 97.8
--- NOTE | 2020-09-23 05:39 | NUR ---
Patient has been awake in bed most of this shift. Has been repositioned in bed. Denies pain and discomfort at this time. Did complain of some shortness of breath. 90% room air. Put on oxygen at 1.5 L/min via NC as requested. Voices no further questions, needs, or concerns at this time. Resting in bed with call light within reach.
[2020-09-23 07:51] VITALS: BP 108/56; PULSE 77; TEMP 98.1
[2020-09-23 11:46] VITALS: BP 120/62; PULSE 73; TEMP 98.3
--- NOTE | 2020-09-23 14:50 | NUR ---
Care provided by ÁNGELA between [id number] supervised by this instructor, agree with findings and documentation. SN will addend AM assessment to include lung sounds.
[2020-09-23 16:00] VITALS: BP 121/72; PULSE 65; TEMP 98
--- NOTE | 2020-09-23 16:42 | NUR ---
Reviewed students assessment. PICC on NEO, CDI, fluids infusing. A&O. VSS on room air, no reported SOB. Suction at the bedside. Rectal tube in place, had leaked in the beginning of shift, sterile water added to balloon. Anderson dependent drainage, clear yellow. Right ankle dressing. Call light within reach
--- NOTE | 2020-09-23 17:16 | NUR ---
Patient had an uneventful day. A&Ox3. VSS. IV CDI, fluids infusing. Denies pain and discomfort. Rectal tube patent, no reported leaking. Anderson clear yellow urine. Patient repositioned for comfort. No further needs expressed from the patient. Call light within reach
--- NOTE | 2020-09-23 18:58 | NUR ---
Received report from Amy. Patient awake in bed. Denies needs at this time.
[2020-09-23 19:15] VITALS: BP 119/62; PULSE 76; TEMP 97.5
--- NOTE | 2020-09-23 20:00 | NUR ---
Assesment done. Patient is alert and oriented. He is on room air. With ramsey catheter draining clear, yellow urine. With rectal tube draining brown liquid stools. PICC on right upper arm flushes well with blood return. Olivier at bedside. Patient has productive cough with clear secretions. With SCD on bilateral lower extremities. Wound on right ankle with dressing. Night medicines given crushed with apple sauce. Gatorade with nectar thick. Call light within reach.
[2020-09-23 23:32] VITALS: BP 105/66; PULSE 72; TEMP 97.5
--- NOTE | 2020-09-24 00:08 | NUR ---
Offered patient to repositioned him on bed, he refused. He said he's already comfortable on his position now. Will try again later.
[2020-09-24 03:35] VITALS: BP 107/60; PULSE 79; TEMP 97.5
[2020-09-24 05:51] LABS: MEAN CORPUSCULAR HGB CONC 32 g/dl (33.0-37.0); MEAN PLATELET VOLUME 10.3 fl (7.4-10.4); PLATELET COUNT 256 K/mm3 (130-400); RED BLOOD COUNT 2.58 M/mm3 (4.20-5.60); REDCELL DISTRIBUTION WIDTH-CV 17.1 % (11.5-14.5)
[2020-09-24 05:54] LABS: HEMATOCRIT 28.3 % (42.0-52.0); MEAN CELL VOLUME 110 fl (80.0-100.0); MEAN CORPUSCULAR HEMOGLOBIN 35 pg (27.0-31.0)
[2020-09-24 05:55] LABS: ALBUMIN 2.8 gm/dL (3.5-5.0); BILIRUBIN,TOTAL 0.6 mg/dL (0.0-1.0); CALCIUM 8.8 mg/dL (8.4-10.2); CREATININE, serum 1.15 (0.66-1.25); MAGNESIUM 1.9 mg/dL (1.6-2.3); POTASSIUM 3.4 mmol/L (3.4-5.0); TOTAL PROTEIN 5.7 gm/dL (6.4-8.2)
--- NOTE | 2020-09-24 06:30 | NUR ---
Changed patient's rectal tube bag this morning. He denies pain the whole shift. He was able to finish 2 apple sauce. This nurse and Lyndsey RN went to his room to reposition him but he refused. He said he just woke up and will have breakfast in a bit so he wants to be repositioned later.
[2020-09-24 06:32] LABS: ANISOCYTOSIS 1+; BAND 1 % (0-10); EOSINOPHIL 2 % (0-4); LYMPHOCYTE 12 % (20.0-51.0); NEUTROPHILS 84 % (42.0-75.2); OVALOCYTES 1+; PLATELET ESTIMATE NORMAL (NORMAL); POIKILOCYTOSIS 1+
[2020-09-24 06:33] LABS: HYPOCHROMIA 1+; POLYCHROMASIA 1+
--- NOTE | 2020-09-24 07:00 | NUR ---
Report received from LOUISE Nix. pT in bed resting, denies needs, yankeaur suction at bedside for comfort, will continue to monitor.
[2020-09-24 07:54] VITALS: BP 110/60; PULSE 76; TEMP 97.3
--- NOTE | 2020-09-24 10:11 | NUR ---
The hospitalist requested a [facility] eval. KESHAWN contacted and faxed a referral to Pradip at [facility]. Awaiting screen and approval from insurance. Pradip states that he can be up to the hospital tomorrow to speak to the patient.
--- NOTE | 2020-09-24 11:47 | NUR ---
Pt presents with two stage-2 ulcers on sacral area. Nurse found an additional ulcer. Egg crate padding placed on pt's mattress. Changed pt Right ankle dressing, wound is approximated. No drainage noted. Wound is red and edematous.
--- NOTE | 2020-09-24 11:50 | NUR ---
Assessment charted. PT has 2 large sac[address] dressings in place for 3 small open areas. Groin is excoriated and placed barrier cream. Ramsey draining yellow sediment urine to DD, pericare proivded, some leakage noted to ramsey. Rectal tube also has some leakage, cleaned and repositioned. Placed pt on egg crate mattress, heel floaters and turning q2h for comfort. Lotion applied to body when bed bath provided d/t dry skin. Pt cleared for water per Afua Ceballos, got him a glass per his request. Denies other needs, bed alarm on, will ocntinue to monitor.
[2020-09-24 13:50] VITALS: BP 102/51; PULSE 76; TEMP 97.2
--- NOTE | 2020-09-24 14:47 | NUR ---
This instructor supervised care provided by ÁNGELA between [id number], agree with documentation.
[2020-09-24 16:00] VITALS: BP 90/57; PULSE 83; TEMP 97.2
--- NOTE | 2020-09-24 19:16 | NUR ---
pts rectal tube came out this evening, per Dr. Koo okay to remove whenever pt comfortable and pt had already removed it. CLeaned pt up and noticed reddened rash over groin, abd and arms, called LOY Jurado with hospitalist group and relayed rash, she will come see soon. Pt repositioned q2h for comfort over shift today. REsting in bed now, eating supper, denies needs, report given to LOUISE Siddiqui on nightshift who will resume care.
--- NOTE | 2020-09-24 19:25 | NUR ---
Patient is awake, alert, oriented x 4, able to make all needs known, telemetry in use, rectal tube d/c by previous shift, PICC to R upper arm with dressing c/d/i, VS stable.
[2020-09-24 20:00] VITALS: BP 98/61; PULSE 56; TEMP 98
[2020-09-25] VITALS (8 sets, daily range): BP systolic 88–111; BP diastolic 43–58; PULSE 76–85; TEMP 97.8–98.5
[2020-09-25 07:04] LABS: MEAN CELL VOLUME 108 fl (80.0-100.0); MEAN CORPUSCULAR HGB CONC 32 g/dl (33.0-37.0); MEAN PLATELET VOLUME 10.7 fl (7.4-10.4); PLATELET COUNT 191 K/mm3 (130-400); RED BLOOD COUNT 2.82 M/mm3 (4.20-5.60); REDCELL DISTRIBUTION WIDTH-CV 16.7 % (11.5-14.5)
[2020-09-25 07:09] LABS: HEMATOCRIT 30.4 % (42.0-52.0); HEMOGLOBIN 9.6 g/dl (13.5-18.0); MEAN CORPUSCULAR HEMOGLOBIN 34 pg (27.0-31.0)
[2020-09-25 07:19] LABS: CALCIUM 8.4 mg/dL (8.4-10.2); CREATININE, serum 1.03 (0.66-1.25); MAGNESIUM 1.5 mg/dL (1.6-2.3); POTASSIUM 3.6 mmol/L (3.4-5.0)
--- NOTE | 2020-09-25 08:47 | NUR ---
Pradip, at [facility], reports that he has submitted for auth and will be up to the hospital today to visit the patient.
--- NOTE | 2020-09-25 10:04 | NUR ---
Pt. sitting in bed in with speech therapy eating breakfast. Pt. is tolerating advancement of diet well, S/T recommends to advance diet to a mechanical soft diet. PA informed and okay with advancement. Mechanical soft diet initiated.
--- NOTE | 2020-09-25 12:30 | NUR ---
Lisa with [employer] called. Pt's move to [facility] has been denied. Peer to Peer phone number is [phone]. Call must be made prior to 09/28 at 1100.
--- NOTE | 2020-09-25 13:41 | NUR ---
Pradip, at [facility], reports that the patient's insurance denied [facility]. The [id number] number is [phone]. SW notified the patient's PA and provided her with the [id number] number.
--- NOTE | 2020-09-25 15:57 | NUR ---
The hospitalist notified KESHAWN that he would not be doing the [id number]. KESHAWN faxed updates to [facility] and [facility]. KESHAWN also consulted IPR Director, Stephanie. KESHAWN updated the patient. He is agreeable to going to post-acute rehab.
--- NOTE | 2020-09-25 19:10 | NUR ---
Received report from Carline. Patient awake in bed. He is about to eat his dinner. Called TARIQ Campa to assist patient.
[2020-09-26] VITALS (7 sets, daily range): BP systolic 92–110; BP diastolic 45–60; PULSE 69–94; TEMP 97.3–98.6
--- NOTE | 2020-09-26 06:17 | NUR ---
PAtient had uneventful night. He refused being turned and repositioned last night. He denies pain. He was able to sleep. No other needs noted this morning.
[2020-09-26 07:10] LABS: MEAN CELL VOLUME 108 fl (80.0-100.0); MEAN CORPUSCULAR HGB CONC 32 g/dl (33.0-37.0); PLATELET COUNT 143 K/mm3 (130-400); RED BLOOD COUNT 2.79 M/mm3 (4.20-5.60); REDCELL DISTRIBUTION WIDTH-CV 16.5 % (11.5-14.5)
[2020-09-26 07:18] LABS: HEMOGLOBIN 9.5 g/dl (13.5-18.0); MEAN CORPUSCULAR HEMOGLOBIN 34 pg (27.0-31.0)
[2020-09-26 07:26] LABS: CALCIUM 7.9 mg/dL (8.4-10.2); CREATININE, serum 1.04 (0.66-1.25); MAGNESIUM 2.1 mg/dL (1.6-2.3); POTASSIUM 3.4 mmol/L (3.4-5.0)
--- NOTE | 2020-09-26 11:28 | NUR ---
Pt. in bed sitting upright. Currently expresses no needs.Consuming K replacement well. Pt. passed bowel movement, loosely formed. Nurse changed sacral dressing x2. Will continue to monitor. Call light within reach.
--- NOTE | 2020-09-26 13:52 | NUR ---
Stephanie, [facility] Director, reports that they have declined the patient. KESHAWN attempted to contact [facility] for pre-auth. KESHAWN was fifth in line. KESHAWN was able to leave phone number for them to contact back when my number was up. KESHAWN faxed the patient's information to [facility] for prior-auth. Awaiting to hear back from them. KESHAWN contacted and faxed updates to [employer] and [facility]. [facility] is requesting a copy of the patient's Medicaid application. KESHAWN to obtain the application.
--- NOTE | 2020-09-26 14:49 | NUR ---
KESHAWN contacted [facility] again to start pre-auth. KESHAWN spoke to Tati at [facility] and started pre-auth. Ref#[id number]. Tati reports that they will reach out to once they receive and process the patient's records.
--- NOTE | 2020-09-26 16:13 | NUR ---
Joe, at [facility], reports that they would require a copy of the patient's Medicaid application before they can decide if they accept or not. KESHAWN was able to obtain Medicaid application. KESHAWN faxed the application to Joe. Jimmy, at [facility], reports that they have declined the patient. KESHAWN contacted and faxed a referral to [facility], [facility], [place], [facility], [facility], [facility] [place], [facility], and [facility]. Renetta, at [facility], reports that they do not have a Medicare bed available at this time. Awaiting screens. KESHAWN attempted to contact and update the patient's son, Flip. KESHAWN left him a voicemail.
--- NOTE | 2020-09-26 19:16 | NUR ---
Pt. sitting in bed on room air. Denies pain, dizziness. Free of fever, n/v. Pt. reported he could not finish his snack. Throughout day pt. was resistant to reposition but required positive feedback to complete reposition. Pt. expresses no additional needs at this time. Call light within reach.
--- NOTE | 2020-09-26 23:20 | NUR ---
1946- ALERT AND OX3. ASSESSMENT COMPLETE. ORDERS REVIEWED. POC DISCUSSED. PT WANTED PM MEDS NOW TO INCLUDE MELTONIN TO HELP HIM SLEPP. REPOSITIONING TONIGHT OFTEN PT WILL ALLOW Q2HR. REPORT THAT PT OFTEN REFUSES TO MOVE. COBB CATH IN PLACE TO DD. SCD ON. PILLOWS FOR COMFORT. RT UPPER ARM PICC, FLUSHED GOOD BLOOD RETURN. CALL LIGHT WI REACH. NEEDS MET.
[2020-09-27 03:33] VITALS: BP 98/51; PULSE 84; TEMP 97.9
--- NOTE | 2020-09-27 07:23 | NUR ---
Patient awake and lying in bed at this time. Patient denies any pain or discomfort at this time. Denies any needs. Will continue to monitor. Call light within reach. Fall percautions in place.
[2020-09-27 07:40] VITALS: BP 94/55; PULSE 78; TEMP 97.7
--- NOTE | 2020-09-27 10:27 | NUR ---
Cait, at [facility], reports that they have declined the patient. Joe, at [facility], reports that they have declined the patient.
--- NOTE | 2020-09-27 10:39 | NUR ---
Rodriguez, at [facility], reports that she is going to call and try and get prior auth from the patient's insurance.
[2020-09-27 11:33] VITALS: BP 98/59; PULSE 87; TEMP 97.5
--- NOTE | 2020-09-27 12:52 | NUR ---
Scheduled medications given. Bed bath performed by TARIQ Henson. Dressings on sacral area changed. Patient does not C/O any pain or discomfort at this time. Patient denies any needs. Will continue to monitor. Call light within reach. Fall percautions in place.
--- NOTE | 2020-09-27 14:56 | NUR ---
Germania, at [facility] in [place], reports that they have accepted the patient, but need to get approval from insurance first. She states that they would be able to take him tomorrow. [facility]. KESHAWN received a call from [employer]. [facility] reports that the patient's [employer] has approved SNF for five days from 09/27-10/01. Auth#[id number]. KESHAWN informed Germania at [facility] of this. She states that she still needs to hear from insurance.
[2020-09-27 15:53] VITALS: BP 101/61; PULSE 76; TEMP 98
--- NOTE | 2020-09-27 16:12 | NUR ---
KESHAWN contacted the patient's son, Flip, and updated him on [facility]'s acceptance. Flip is in agreement with the patient going to [facility]. SW met with the patient and updated him. The patient appeared hesitant, but was agreeable to going to [facility]. KESHAWN contacted Germania at [facility] to follow up on whether she had heard from insurance yet. Germania reports that she has not yet, but states that she has went ahead and got transportation set up for tomorrow at 1400. She states that if she does not hear from insurance by then though, transportation will have to be arranged by our facility for later in the day or they would get transportation set up on Thursday. KESHAWN updated the patient and his PA. SW attempted to update his son, Flip, on the time. SW left him a voicemail.
[2020-09-27 19:06] VITALS: BP 91/46; PULSE 66; TEMP 97.5
--- NOTE | 2020-09-27 19:25 | NUR ---
Patient had an uneventful day. Patient still waiting on placement. Anderson catheter DC'd. Balloon intact, 8 ml of NS taken out, pericare performed. Patient does not C/O any pain or discomfort at this time. Denies any further needs. Bedside report given to LOUISE Marques. Call light felipe herrera. Fall percautions in place.
--- NOTE | 2020-09-27 23:42 | NUR ---
1955- ASSESSMENT DONE. PM MEDS GIVEN. DENIES SOA, CHEST PAIN DIZZY OR GENERAL PAIN. COMFORTABLE IN POSITONED, DOES NOT WANT TO REPOSITION. MULPITLE WOUNDS COVERED W DSG, C/D/I. AWAITING PLACEMENT. PT XWIFE AT BEDSIDE. NEEDS MET.
[2020-09-27 23:48] VITALS: BP 95/49; PULSE 74; TEMP 97.9
[2020-09-28 04:00] VITALS: BP 94/59; PULSE 76; TEMP 97.3
--- NOTE | 2020-09-28 05:47 | NUR ---
PT RESTED THROUGH THE NIGHT WO INCIDENT. DID ALLOW US TO TURN HIM TWICE OVERNIGHT. MEPILEX CHANGED ON BOTTOM. POSITIONED W PILLOWS. AM MEDS GIVEN. DENIES PAIN. LIQ LOOSE BM THIS AM ON BEDPAN.
[2020-09-28 07:17] LABS: BASO % 0.1 % (0.0-2.0); GRAN # 10.4 (1.4-6.5); GRAN % 84.2 % (42.2-75.2); LYMPH # 1.2 (1.2-3.4); LYMPH % 9.3 % (20.0-51.0); MEAN CELL VOLUME 107 fl (80.0-100.0); MEAN CORPUSCULAR HGB CONC 32 g/dl (33.0-37.0); MEAN PLATELET VOLUME 11.6 fl (7.4-10.4); MONO # 0.7 (0.1-0.6); MONO % 5.9 % (1.7-9.3); PLATELET COUNT 145 K/mm3 (130-400); RED BLOOD COUNT 2.81 M/mm3 (4.20-5.60); REDCELL DISTRIBUTION WIDTH-CV 15.7 % (11.5-14.5)
--- NOTE | 2020-09-28 07:21 | NUR ---
Patient awake and lying in bed at this time. Breakfast for patient ordered. Patient denies any pain or discomfort at this time. Denies any further needs. Will continue to monitor. Call light within reach. Fall percautions in place.
[2020-09-28 07:22] LABS: ALBUMIN 2.5 gm/dL (3.5-5.0); BILIRUBIN,TOTAL 0.9 mg/dL (0.0-1.0); CALCIUM 7.9 mg/dL (8.4-10.2); CREATININE, serum 1.16 (0.66-1.25); MAGNESIUM 1.9 mg/dL (1.6-2.3); POTASSIUM 3.4 mmol/L (3.4-5.0); TOTAL PROTEIN 5.7 gm/dL (6.4-8.2)
[2020-09-28 07:24] LABS: HEMATOCRIT 30.1 % (42.0-52.0); HEMOGLOBIN 9.6 g/dl (13.5-18.0); MEAN CORPUSCULAR HEMOGLOBIN 34 pg (27.0-31.0)
[2020-09-28 08:05] VITALS: BP 108/58; PULSE 73; TEMP 98.2
[2020-09-28] MEDS ORDERED: IPRATROPIUM BROM3 M1 IH (10:52)
[2020-09-28] MEDS ORDERED: NICODERM C21 MG/PATC TD (10:52)
[2020-09-28] MEDS ORDERED: PERFOROMIS20 MCG/2 M IH (10:52)
[2020-09-28] MEDS ORDERED: DIGITEK0.25 MG PO (10:53)
[2020-09-28] MEDS ORDERED: ALDACTONE50 MG PO (10:53)
[2020-09-28] MEDS ORDERED: MAG-OX 400400 MG/TAB PO (10:54)
[2020-09-28] MEDS ORDERED: PULMICORT0.5 MG/2 M IH (10:54)
[2020-09-28] MEDS ORDERED: LASIX 20MG TABL20 MG PO (10:54)
[2020-09-28] MEDS ORDERED: PROTONIX 40MG T40 MG PO (10:55)
[2020-09-28] MEDS ORDERED: DUO-KAPS1 CAP PO (10:55)
[2020-09-28] MEDS ORDERED: HYDROCORTISON28.4 GM TP (10:55)
[2020-09-28] MEDS ORDERED: THIAMINE 1100 MG/TAB PO (10:55)
[2020-09-28] MEDS ORDERED: FOLIC ACID 11 MG/TA1 PO (10:55)
[2020-09-28] MEDS ORDERED: MELATONIN3 M1 PO (10:56)
--- NOTE | 2020-09-28 11:12 | NUR ---
Scheduled meds given. Patient denies any pain or discomfort at this time. PICC line flushed with good blood return. Patient will be discharging to [facility] later in the day. Patient denies any needs at this time. Call light within reach. Fall percautions in place. Will continue to monitor.
--- NOTE | 2020-09-28 11:46 | NUR ---
A [facility] internet sales representative contacted KESHAWN to inquire what facility to authorize. SW gave her [facility]'s information. The internet sales representative reports that they have authorized [facility]. KESHAWN contacted and updated Germania at [facility]. Germania reports that she has heard back from insurance too and they are all good to accept the patient today. KESHAWN updated the clinical team, the patient, and his son (Flip). They were all agreeable to the plan. The patient is to discharge today, 09/28, to [facility] in [place] for a skilled stay. Transportation was scheduled around 1400, via [facility]. KESHAWN informed the patient, his RN, and the patient's son (Flip) over the phone. They were all agreeable to the time. KESHAWN also presented and read the IM form outloud to the patient. The patient verbalized understanding and gave KESHAWN approval to sign the form on his behalf. KESHAWN provided him with a copy. No additional needs at this time.
[2020-09-28 11:54] VITALS: BP 112/56; PULSE 70; TEMP 97.8
[2020-09-28 12:29] VITALS: BP 112/56; PULSE 70; TEMP 97.8
--- NOTE | 2020-09-28 14:32 | NUR ---
Pt. meets the criteria for discharge. Report given to LOUISE Meneses at [facility]. Patient's vitals are stable, patient does not C/O any pain, discomfort, or needs at this time. Patient transferred from bed to wheelchair with the assistance of this RN and two termite exterminator helper's. Patient escorted out of building by [facility] and [facility] Staff.
== END 2020-09-28 14:36 | DRG 432 ==
LOC: COL.ER 06:55 → ICU 09:52 → MEDICAL 09-22 13:15
PROVIDERS: Emergency Medicine; Hospitalist; Internal Medicine Gastroenterology; Internal Medicine Nephrology; Internal Medicine Pulmonary Disease; Physician Assistant; Student in an Organized Health Care Education/Training Program; ADMIT Internal Medicine
PROC: 0W9G3ZZ Drainage of Peritoneal Cavity, Percutaneous Approach (ICD-10-PCS; 2020-09-10)
PROC: 02HV33Z Insertion of Infusion Device into Superior Vena Cava, Percutaneous Approach (ICD-10-PCS; 2020-09-10)
PROC: 0DB58ZX Excision of Esophagus, Via Natural or Artificial Opening Endoscopic, Diagnostic (ICD-10-PCS; 2020-09-14)
PROC: 0DB68ZX Excision of Stomach, Via Natural or Artificial Opening Endoscopic, Diagnostic (ICD-10-PCS; 2020-09-14)
PROC: 0W9G3ZZ Drainage of Peritoneal Cavity, Percutaneous Approach (ICD-10-PCS; 2020-09-14)
PROC: 0BH17EZ Insertion of Endotracheal Airway into Trachea, Via Natural or Artificial Opening (ICD-10-PCS; principal; 2020-09-17)
PROC: 5A1945Z Respiratory Ventilation, 24-96 Consecutive Hours (ICD-10-PCS; 2020-09-17)
DX: K70.31 Alcoholic cirrhosis of liver with ascites (principal); A41.52 Sepsis due to Pseudomonas; J18.9 Pneumonia, unspecified organism; J96.01 Acute respiratory failure with hypoxia; R65.21 Severe sepsis with septic shock; K29.21 Alcoholic gastritis with bleeding; K29.81 Duodenitis with bleeding; N39.0 Urinary tract infection, site not specified; N17.9 Acute kidney failure, unspecified; E87.1 Hypo-osmolality and hyponatremia; E87.2 Acidosis; B37.81 Candidal esophagitis; D68.9 Coagulation defect, unspecified; K76.6 Portal hypertension; E46 Unspecified protein-calorie malnutrition; G72.81 Critical illness myopathy; I48.91 Unspecified atrial fibrillation; F17.210 Nicotine dependence, cigarettes, uncomplicated; N18.9 Chronic kidney disease, unspecified; G89.29 Other chronic pain; Z20.822 Contact with and (suspected) exposure to COVID-19; K29.20 Alcoholic gastritis without bleeding; E87.6 Hypokalemia; L89.152 Pressure ulcer of sacral region, stage 2; E83.42 Hypomagnesemia; B95.61 Methicillin susceptible Staphylococcus aureus infection as the cause of diseases classified elsewhere; K31.89 Other diseases of stomach and duodenum; I12.9 Hypertensive chronic kidney disease with stage 1 through stage 4 chronic kidney disease, or unspecified chronic kidney disease; S91.001A Unspecified open wound, right ankle, initial encounter; L89.619 Pressure ulcer of right heel, unspecified stage; I71.4 Abdominal aortic aneurysm, without rupture; D63.1 Anemia in chronic kidney disease; D53.9 Nutritional anemia, unspecified; Z79.01 Long term (current) use of anticoagulants; Z72.89 Other problems related to lifestyle; Z68.29 Body mass index [BMI] 29.0-29.9, adult
CPT/HCPCS: 99223-AI; 99232-AI; 99233-AI; 99239; A9284; C1751; C1892; C9113; J0282; J0330; J0696; J1160; J1720; J1815; J1940; J2060; J2405; J2543; J2704; J2765; J2920; J3010; J3370; J3475; J3480; J7030; J7040; J7050; J7060; J7120; J7131; P9016; P9047

== ENCOUNTER → 2022-04-15 | Outpatient (CLI) | payer MEDICARE ==
[~2022-04-15] MED LIST changes: +ALDACTONE50 MG PO; +DIGITEK0.25 MG PO; +DUO-KAPS1 CAP PO; +FOLIC ACID 11 MG/TA1 PO; +HYDROCORTISON28.4 GM TP; +IPRATROPIUM BROM3 M1 IH; +LASIX 20MG TABL20 MG PO; +MAG-OX 400400 MG/TAB PO; +MELATONIN3 M1 PO; +NICODERM C21 MG/PATC TD; +PERFOROMIS20 MCG/2 M IH; +PROTONIX 40MG T40 MG PO; +PULMICORT0.5 MG/2 M IH; +THIAMINE 1100 MG/TAB PO
== END ==
LOC: COL.RAD 11:54
DX: I71.40 Abdominal aortic aneurysm, without rupture, unspecified (principal)